=== PATIENT | male | born 1965 | race American Indian/Alaskan Native ===

== ENCOUNTER 2017-05-24 10:31 | Emergency (ER) | payer OTHER ==
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
[2017-05-24 11:02] VITALS: BP 110/71
[2017-05-24] MEDS ORDERED: MOTRIN PO ONE (13:35)
[2017-05-24] MEDS ORDERED: NORCO 5/325 PO ONE (13:35)
[2017-05-24] MEDS ORDERED: ZOFRAN ODT PO ONE (13:36)
--- NOTE | 2017-05-24 13:39 | XRay Report ---
ROUTINE CHEST, TWO VIEWS: HISTORY: chest pain. The trachea, heart, mediastinal contour, lung del rosario and bony thorax are unremarkable. IMPRESSION: Unremarkable chest x-ray.
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
== END 2017-05-24 14:39 | disposition home or self-care (01) ==
LOC: ED 10:31
DX: M54.2 Cervicalgia (principal); F17.200 Nicotine dependence, unspecified, uncomplicated; V49.49XA Driver injured in collision with other motor vehicles in traffic accident, initial encounter; W22.11XA Striking against or struck by driver side automobile airbag, initial encounter; Y93.89 Activity, other specified; Y99.9 Unspecified external cause status; Y92.410 Unspecified street and highway as the place of occurrence of the external cause
CPT/HCPCS: 71020; 72125; Q0162

== ENCOUNTER 2017-05-31 13:22 | Emergency (ER) | payer SELFPAY ==
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
[2017-05-31 18:16] VITALS: BP 124/87
== END 2017-05-31 18:16 | disposition home or self-care (01) ==
LOC: ED 13:22
DX: M25.512 Pain in left shoulder (principal); F17.200 Nicotine dependence, unspecified, uncomplicated; V89.2XXA Person injured in unspecified motor-vehicle accident, traffic, initial encounter; Y92.488 Other paved roadways as the place of occurrence of the external cause; Y93.89 Activity, other specified; Y99.9 Unspecified external cause status
CPT/HCPCS: 99283

== ENCOUNTER 2017-06-25 21:10 | Emergency (ER) | payer MEDICARE ==
[2017-06-25 23:04] LABS: Basophils % (Auto) 0.7 % (0.0-1.8); Hematocrit 47.9 % (35.5-45.6); Mean Corpuscular HGB Conc 33 % (32-34); Mean Corpuscular Hemoglobin 30 pg (28-32); Mean Corpuscular Volume 91 fl (84-94); Platelet Count 313 K/mm3 (140-440); Red Blood Count 5.29 M/mm3 (3.65-5.03); Red Cell Distribution Width 13.4 % (13.2-15.2); White Blood Count 8.2 K/mm3 (4.5-11.0)
[2017-06-25 23:21] LABS: Alanine Aminotransferase 44 units/L (7-56); Albumin 4.6 g/dL (3.9-5); Albumin/Globulin Ratio 1.5 %; Alkaline Phosphatase 60 units/L (35-129); Anion Gap 29 mmol/L; Blood Urea Nitrogen 14 mg/dL (9-20); Calcium 8.9 mg/dL (8.4-10.2); Carbon Dioxide 17 mmol/L (22-30); Chloride 100.4 mmol/L (98-107); Glucose 45 mg/dL (75-100); Lipase 25 units/L (13-60); Sodium 142 mmol/L (137-145); Total Protein 7.7 g/dL (6.3-8.2)
[2017-06-26 08:41] VITALS: BP 145/65
[2017-06-26] MEDS ORDERED: TORADOL IV ONE (08:58)
--- NOTE | 2017-06-26 09:02 | Emergency Department Report ---
HPI - General Chief Complaint: Abdominal Pain Time Seen by Provider: 06/26/17 08:48 - HPI HPI: Room 3 The patient is a 51-year-old male presented with the chief complaint of abdominal pain. The patient states for the past 2 days he's had suprapubic abdominal pain. Patient describes pain as sharp in nature. Patient does admit to nausea and vomiting and diarrhea for the past 2 days. Patient also acknowledges a subjective fever. The patient states he believes he lost approximately 30 pounds in the past 2 months. The patient currently uses pain score of 8/10. Location: [see above] Duration: [see above] Quality: Sharp Severity: 8/10 Modifying factors: [see above] Context: [see above] Mode of transportation: The patient drove himself to the emergency department and there are no visitors present ED Past Medical Hx - Past Medical History Previous Medical History?: No - Surgical History Additional Surgical History: Right sided chest tube for pneumothorax - Family History Family history: no significant - Social History Smoking Status: Current Every Day Smoker (1 pack per day) Substance Use Type: Alcohol (beer daily), Marijuana - Medications Home Medications: Home Medications Medication Instructions Recorded Confirmed Last Taken Type Cyclobenzaprine [Flexeril] 10 mg PO TID PRN #12 tablet 05/24/17 Unknown Rx Naproxen [Naprosyn TAB] 375 mg PO BID PRN #20 tablet 05/24/17 Unknown Rx Acetaminophen/Codeine [Tylenol 1 tab PO Q6H PRN #12 tab 05/31/17 Unknown Rx /Codeine # 3 tab] Diphenoxylate HCl/Atropine 2 each PO QID PRN #20 tablet 06/26/17 Unknown Rx [Lomotil 2.5-0.025 mg Tablet] Famotidine [Pepcid] 20 mg PO BID #30 tablet 06/26/17 Unknown Rx Promethazine [Phenergan TAB] 25 mg PO Q6HR PRN #20 tab 06/26/17 Unknown Rx Promethazine [Phenergan] 25 mg WA Q6HR PRN #5 supp.rect 06/26/17 Unknown Rx traMADol [Ultram] 50 mg PO Q6HR PRN #14 tablet 06/26/17 Unknown Rx ED Review of Systems ROS: Stated complaint: ABDOMINAL PAIN Other details as noted in HPI Comment: All other systems reviewed and negative Constitutional: fever (subjective), other (weight loss). denies: chills Eyes: denies: eye pain, eye discharge, vision change ENT: denies: ear pain, throat pain Respiratory: denies: cough, shortness of breath, wheezing Cardiovascular: denies: chest pain, palpitations Endocrine: no symptoms reported Gastrointestinal: abdominal pain, nausea, vomiting, diarrhea Musculoskeletal: denies: back pain, joint swelling, arthralgia Skin: denies: rash, lesions Neurological: denies: headache, weakness, paresthesias Psychiatric: denies: anxiety, depression Hematological/Lymphatic: denies: easy bleeding, easy bruising Physical Exam - Physical Exam Vital Signs: Vital Signs 06/25/17 06/26/17 06/26/17 22:36 05:16 08:15 Temperature 98.5 F 99.7 F H 98.1 F Pulse Rate 65 86 64 Respiratory 18 18 16 Rate Blood Pressure 117/66 121/85 Blood Pressure 145/65 [Left] O2 Sat by Pulse 99 97 100 Oximetry Physical Exam: GENERAL: The patient is well-developed well-nourished male lying on stretcher not appearing to be in acute distress. [] HEENT: Normocephalic. Atraumatic. Extraocular motions are intact. Patient has moist mucous membranes. NECK: Supple. Trachea midline CHEST/LUNGS: Clear to auscultation. There is no respiratory distress noted. HEART/CARDIOVASCULAR: Regular. There is no tachycardia. There is no gallop rub or murmur. ABDOMEN: Abdomen is soft, with tenderness to palpation suprapubic and left lower quadrant. There was no guarding. Patient has normal bowel sounds. There is no abdominal distention. SKIN: There is no rash. There is no edema. There is no diaphoresis. NEURO: The patient is awake, alert, and oriented. The patient is cooperative. The patient has normal speech MUSCULOSKELETAL: There is no evidence of acute injury. ED Course Vital Signs 06/25/17 06/26/17 06/26/17 22:36 05:16 08:15 Temperature 98.5 F 99.7 F H 98.1 F Pulse Rate 65 86 64 Respiratory 18 18 16 Rate Blood Pressure 117/66 121/85 Blood Pressure 145/65 [Left] O2 Sat by Pulse 99 97 100 Oximetry - Reevaluation(s) Reevaluation #1: 06/26/17 10:30 Patient resting comfortably ED Medical Decision Making - Lab Data Result diagrams: 06/25/17 22:48 06/25/17 22:48 Laboratory Tests 06/25/17 06/25/17 06/26/17 22:48 22:48 08:45 WBC 8.2 RBC 5.29 H Hgb 16.0 H Hct 47.9 H MCV 91 MCH 30 MCHC 33 RDW 13.4 Plt Count 313 Lymph % (Auto) 31.2 Stewart % (Auto) 8.8 H Eos % (Auto) 1.0 Baso % (Auto) 0.7 Lymph # 2.5 Stewart # 0.7 Eos # 0.1 Baso # 0.1 Seg Neutrophils % 58.3 Seg Neutrophils # 4.8 Sodium 142 Potassium 4.0 Chloride 100.4 Carbon Dioxide 17 L Anion Gap 29 BUN 14 Creatinine 0.8 Estimated GFR > 60 BUN/Creatinine Ratio 17.50 Glucose 45 L Calcium 8.9 Total Bilirubin 0.50 AST 64 H ALT 44 Alkaline Phosphatase 60 Total Protein 7.7 Albumin 4.6 Albumin/Globulin Ratio 1.5 Lipase 25 Urine Color Yellow Urine Turbidity Clear Urine pH 5.0 Ur Specific [place] 1.017 Urine Protein <15 mg/dl Urine Glucose (UA) Neg Urine Ketones 80 Urine Blood Mod Urine Nitrite Neg Urine Bilirubin Neg Urine Urobilinogen < 2.0 Ur Leukocyte Esterase Neg Urine WBC (Auto) < 1.0 Urine RBC (Auto) 1.0 Urine Mucus Few - Radiology Data Radiology results: report reviewed (CT abdomen and pelvis), image reviewed (CT abdomen and pelvis) CT abdomen and pelvis for this is read by radiologist) -no acute abdominal processes identified. Mild hepatic steatosis. Small umbilical hernia containing fat. - Differential Diagnosis UTI, diverticulitis, gastroenteritis Critical care attestation.: If time is entered above; I have spent that time in minutes in the direct care of this critically ill patient, excluding procedure time. ED Disposition Clinical Impression: Nausea vomiting and diarrhea, Abdominal pain Disposition: - TO HOME OR SELFCARE Is pt being admited?: No Does the pt Need Aspirin: No Condition: Stable Instructions: Acute Nausea and Vomiting (ED), Abdominal Pain (ED) Additional Instructions: Return to the emergency department immediately should you develop worsening symptoms, fever, inability to tolerate food or liquid or any other concerns. Prescriptions: Diphenoxylate HCl/Atropine [Lomotil 2.5-0.025 mg Tablet] 2 each PO QID PRN #20 tablet PRN Reason: Diarrhea Famotidine [Pepcid] 20 mg PO BID #30 tablet Promethazine [Phenergan TAB] 25 mg PO Q6HR PRN #20 tab PRN Reason: Nausea Promethazine [Phenergan] 25 mg [place] Q6HR PRN #5 supp.rect PRN Reason: Vomiting traMADol [Ultram] 50 mg PO Q6HR PRN #14 tablet PRN Reason: Pain Referrals: [facility] [Outside] - 3-5 Days ALEXANDRIA SCOTT MD [Staff Physician] - [facility] (Dr. Scott is a outsoles channel opener. Please follow up with him for further evaluation) Time of Disposition: 10:30
[2017-06-26] MEDS ORDERED: LIDOCAINE VISCOUS 2% PO ONE (09:26)
[2017-06-26 09:29] LABS: Bilirubin,Urine NEG (Negative); Blood,Urine MOD (Negative); Ketones,Urine 80 mg/dL (Negative); Leukocyte Esterase,Urine NEG (Negative); Mucus,Urine FEW /HPF; Nitrite,Urine NEG (Negative); Protein,Urine <15 mg/dL mg/dL (Negative); Urobilinogen,Urine < 2.0 mg/dL (<2.0)
[2017-06-26] MEDS ORDERED: NACL ONE (09:36)
[2017-06-26 09:44] LABS: WBC,Urine < 1.0 /HPF (0.0-6.0)
--- NOTE | 2017-06-26 10:11 | Cat Scan Report ---
CT SCAN OF THE ABDOMEN AND PELVIS WITH CONTRAST: HISTORY: Lower abdominal pain, weight loss, nausea, vomiting, diarrhea. TECHNIQUE: Helical CT in 1.25mm intervals following IV contrast. Sagittal and coronal reconstructions. FINDINGS: The liver is normal size and contour. Mild diffuse fatty infiltration is identified. No focal liver mass or surface nodularity. The spleen and pancreas demonstrate a normal size and attenuation with no evidence of abnormal mass. The kidneys are normal in size and position with no evidence of hydronephrosis or mass. The adrenal glands are normal. The abdominal aorta is normal. The GI system is within normal limits given no oral contrast was administered. No focal inflammation or obstruction is appreciated. A normal appendix. There is no evidence of peritoneal air or fluid. There is no evidence of any abnormal masses or fluid collections within the pelvis. No adenopathy is identified. The bladder is normal. There is borderline prostatic enlargement. A small umbilical hernia with a 1 cm neck is identified containing fat. IMPRESSION: No acute abdominal process is identified. Mild hepatic steatosis. Small umbilical hernia containing fat.
[2017-06-26] MEDS ORDERED: NACL 0.9% 1000 ML 1,000 ML IV ONE ×2 (10:23)
== END 2017-06-26 12:31 | disposition home or self-care (01) ==
LOC: ED 21:10
DX: R10.9 Unspecified abdominal pain (principal); R11.2 Nausea with vomiting, unspecified; R19.7 Diarrhea, unspecified; F12.10 Cannabis abuse, uncomplicated; F17.200 Nicotine dependence, unspecified, uncomplicated
CPT/HCPCS: 36415; 74177; 80053; 81001; 82962; 83690; 85025; 96361; 96374; 99284; J1885; J7030; Q9967